=== PATIENT | female | born 1965 | race Caucasian/White ===

== ENCOUNTER → 2020-01-13 09:58 | Outpatient (CLI) | payer OTHER, SELFPAY ==
--- NOTE | ~2020-01-13 | MM_ITS ---
EXAMINATION: MM screening [facility] BI w law HISTORY: Screening mammogram TECHNIQUE: Craniocaudal and mediolateral oblique 3-D tomosynthesis images were obtained and synthetic 2-D images were generated. CAD analysis was submitted and interpreted. COMPARISON: 01/11/2019, 12/28/2017, 12/26/2016 BREAST PARENCHYMAL COMPOSITION: The breasts are heterogeneously dense, which may obscure small masses . FINDINGS: There is no evidence of suspicious mass, calcification, or architectural distortion to sugg est malignancy in either breast. There has been no suspicious interval change. IMPRESSION: 1. No mammographic evidence of malignancy. 2. Recommend routine screening mammography in one year. BI-RADS Category 1: Negative Reviewed, dictated and finalized at location A. 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
== END ==
PROVIDERS: Visit Provider Nurse Practitioner
DX: Z12.31 Encounter for screening mammogram for malignant neoplasm of breast (principal)
CPT/HCPCS: 77063; 77067

== ENCOUNTER → 2021-01-31 17:42 | Outpatient (CLI) | payer OTHER, SELFPAY ==
--- NOTE | ~2021-01-31 | DEXA_ITS ---
Bone Density Report Name: Abi Woods Age: 55 Sex: Female Ethnicity: White Date of : 1965 Indication: postmenopausal; screening for osteoporosis; Referring Provider: Benigno, Toma Study: Bone densitometry was performed. Exam Date: January 31, 2021 Accession number: [id number] Bone Density: Region BMD T-score Z-score Classification AP Spine (L1-L4) 1.007 -0.4 0.7 Normal Femoral Neck (Left) 0.690 -1.4 -0.4 Osteopenia Total Hip (Left) 0.786 -1.3 -0.6 Osteopenia Femoral Neck (Right) 0.660 -1.7 -0.7 Osteopenia Total Hip (Right) 0.795 -1.2 -0.6 Osteopenia Total Hip Mean 0.791 -1.3 -0.6 Osteopenia World Health Organization criteria for BMD impression classify patients as: Normal (T-score at or above -1.0), Osteopenia (T-score between -1.0 and -2.5), or Osteoporosis (T-score at or below -2.5). 10-year Fracture Risk(1): Major Osteoporotic Fracture 6.8% Hip Fracture 0.6% Reported Risk Factors: [place] (), Neck BMD=0.660, BMI=26.0 (1) FRAX(R) Version 3.08. Fracture probability calculated for an untreated patient. Fracture probability may be lower if the patient has received treatment. Previous Exams: Region Exam Age BMD T-score BMD Change BMD Change Date g/cm2 vs Baseline vs Previous AP Spine(L1-L4) 01/31/2021 55 1.007 -0.4 -0.079* -0.079* 12/28/2017 52 1.086 0.4 Total Hip(Left) 01/31/2021 55 0.786 -1.3 -0.068* -0.068* 12/28/2017 52 0.854 -0.7 Total Hip(Right) 01/31/2021 55 0.795 -1.2 -0.098* -0.098* 12/28/2017 52 0.893 -0.4 *Denotes significance at 95% confidence level, LSC for AP Spine = 0.022 g/cm2, LSC for Total Hip = 0.027 g/cm2 Clinical Information Provided by Patient: Patient maximum height was 67 Menopause Age: 51 No regular weight bearing exercise Drinks caffeinated beverages Onset of menses at age 13 Number of children 2 Impression: The patient has low bone mass, based on the Right Femoral Neck T-score. The patient has an estimated ten-year risk of hip fracture of 0.6% and an estimated ten-year risk of major fracture of 6.8%, based on the WHO FRAX algorithm. The BMD for the AP Spine(L1-L4) decreased, changing by -0.079 since the last DXA exam. The BMD for the Total Hip(Left) decreased, changing by -0.068 since the last DXA exam. The BMD for the Total Hip(Right) decreased, changing by -0.098 since the last DXA exam. Discussion: BONE DENS
--- NOTE | ~2021-01-31 | MM_ITS ---
EXAMINATION: MM screening [facility] w law HISTORY: Screening mammogram TECHNIQUE: Craniocaudal and mediolateral oblique 3-D tomosynthesis images were obtained and synthetic 2-D images were generated. CAD analysis was submitted and interpreted. COMPARISON: 01/13/2020, 01/11/2019, 12/28/2017 bilateral digital screening mammogram examinations BREAST PARENCHYMAL COMPOSITION: The breasts are heterogeneously dense, which may obscure small masses . FINDINGS: There is no evidence of suspicious mass, calcification, or architectural distortion to sugg est malignancy in either breast. There has been no suspicious interval change. IMPRESSION: 1. No mammographic evidence of malignancy. 2. Recommend routine screening mammography in one year. 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
== END ==
PROVIDERS: Visit Provider Nurse Practitioner
DX: Z12.31 Encounter for screening mammogram for malignant neoplasm of breast (principal); Z78.0 Asymptomatic menopausal state; M85.852 Other specified disorders of bone density and structure, left thigh; M85.851 Other specified disorders of bone density and structure, right thigh
CPT/HCPCS: 77063; 77067; 77080

== ENCOUNTER → 2022-02-07 07:27 | Outpatient (CLI) | payer OTHER, SELFPAY ==
--- NOTE | ~2022-02-07 | MM_ITS ---
EXAMINATION: MM screening [facility] BI w law HISTORY: Screening mammogram TECHNIQUE: Craniocaudal and mediolateral oblique 3-D tomosynthesis images were obtained and synthetic 2-D images were generated. CAD analysis was submitted and interpreted. COMPARISON: 01/31/2021, 01/13/2020 BREAST PARENCHYMAL COMPOSITION: The breasts are heterogeneously dense, which may obscure small masses . FINDINGS: There is no suspicious mass, calcification, or architectural distortion to suggest malignan cy in either breast. There has been no suspicious interval change. IMPRESSION: 1. No mammographic evidence of malignancy. 2. Recommend routine screening mammography in one year. BI-RADS Category 1: Negative Reviewed, dictated and finalized at location A.
== END ==
PROVIDERS: Visit Provider Nurse Practitioner
DX: Z12.31 Encounter for screening mammogram for malignant neoplasm of breast (principal)
CPT/HCPCS: 77063; 77067

== ENCOUNTER → 2023-03-26 11:18 | Outpatient (CLI) | payer OTHER, SELFPAY ==
--- NOTE | ~2023-03-26 | MM_ITS ---
EXAMINATION: MM screening [facility] w law HISTORY: Screening mammogram TECHNIQUE: Craniocaudal and mediolateral oblique 3-D tomosynthesis images were obtained and synthetic 2-D images were generated. CAD analysis was submitted and interpreted. COMPARISON: 02/07/2022, 01/31/2021, 01/13/2020 BREAST PARENCHYMAL COMPOSITION: The breasts are heterogeneously dense, which may obscure small masses . FINDINGS: RIGHT BREAST: No suspicious mass, calcification, or architectural distortion are identified to sugges t malignancy. There has been no suspicious interval change. LEFT BREAST: There is a possible low-density mass in the posterior third outer breast. IMPRESSION: 1. Possible left breast mass. 2. Additional mammographic views and possible breast ultrasound are recommended. BI-RADS Category 0: Incomplete: Needs additional imaging evaluation. Reviewed, dictated and finalized at location A. IMPRESSION: 1. Possible left breast mass. 2. Additional mammographic views and possible breast ultrasound are recommended . BI-RADS Category 0: Incomplete: Needs additional imaging evaluation.
== END ==
PROVIDERS: PCP Nurse Practitioner; Visit Provider Nurse Practitioner
DX: Z12.31 Encounter for screening mammogram for malignant neoplasm of breast (principal); R92.8 Other abnormal and inconclusive findings on diagnostic imaging of breast
CPT/HCPCS: 77063; 77067

== ENCOUNTER → 2023-05-12 08:28 | Outpatient (CLI) | payer OTHER, SELFPAY ==
--- NOTE | ~2023-05-12 | MMUS_ITS ---
EXAMINATION: MM diagnostic [facility] LT w law, US breast LT limited HISTORY: Possible left breast mass reported in posterior third of outer breast on 03/2023 screening m ammogram TECHNIQUE: Additional 3-D tomosynthesis images of the left breast were performed and synthetic 2-D im ages were generated. CAD analysis was submitted and interpreted. High resolution upper outer and lowe r-outer quadrant left breast ultrasound was performed. COMPARISON: 03/2020 bilateral screening mammogram FINDINGS: MAMMOGRAPHIC FINDINGS: No suspicious mass or architectural distortion is evident. Heterogeneously dense stroma in the outer left breast may obscure a mass. Ultrasound of the lateral left breast was performed. ULTRASOUND: No suspicious mass or shadowing, cyst or other significant sonographic abnormalities detected in the upper outer or lower outer quadrants of the left breast. IMPRESSION: 1. No mammographic or sonographic evidence of malignancy 2. Routine annual mammographic screening is recommended. BI-RADS Category 1: Negative Reviewed, dictated and finalized at location A. IMPRESSION: 1. No mammographic or sonographic evidence of malignancy 2. Routine annual mammographic screening is recommended. BI-RADS Category 1: Negative
== END ==
PROVIDERS: PCP Obstetrics & Gynecology Gynecology; Visit Provider Obstetrics & Gynecology Gynecology
DX: R92.8 Other abnormal and inconclusive findings on diagnostic imaging of breast (principal)
CPT/HCPCS: 76642; 77061; 77065; G0279